=== PATIENT | male | born 1960 | race Caucasian/White ===

== ENCOUNTER → 2021-08-19 12:44 | Outpatient (BNVA) | payer OTHER, SELFPAY | PROVIDERS: PCP Internal Medicine; Visit Provider Hospitalist | DX: J41.1 Mucopurulent chronic bronchitis (principal); J18.9 Pneumonia, unspecified organism; R91.8 Other nonspecific abnormal finding of lung field; F17.210 Nicotine dependence, cigarettes, uncomplicated | CPT/HCPCS: 99202 ==

== ENCOUNTER 2021-09-17 10:57 | Outpatient (REF) | payer OTHER, SELFPAY ==
--- NOTE | 2021-09-17 17:46 | PFT_ITS ---
FLOWS: FEV1 51% of predicted at 2.03 L. FVC 81% of predicted at 4.26 L. FEV1 to FVC ratio of 0.48. No bronchodilator response. LUNG VOLUMES: Total lung capacity 87% of predicted at 6.68 L. Residual volume 110% of predicted at 2.69 L. Slow vital capacity 77% of predicted at 3.99 L. Expiratory reserve volume 98% of predicted at 1.55 L. Diffusion capacity is moderately decreased. IMPRESSION: Moderate obstructive ventilatory defect with no bronchodilator response. Decreased diffusion capacity suggests emphysema. Elder Quiroz MD AP/MODL / [id number]
== END 2021-09-17 10:58 | disposition home or self-care (01) ==
LOC: HO.RESP 10:57
PROVIDERS: PCP Internal Medicine; Visit Provider Hospitalist
DX: R06.00 Dyspnea, unspecified (principal); J41.1 Mucopurulent chronic bronchitis
CPT/HCPCS: 94060; 94727; 94729

== ENCOUNTER → 2021-09-23 13:18 | Outpatient (BNVA) | payer OTHER, SELFPAY | PROVIDERS: PCP Internal Medicine; Visit Provider Hospitalist | DX: J41.1 Mucopurulent chronic bronchitis (principal); J18.9 Pneumonia, unspecified organism; R91.8 Other nonspecific abnormal finding of lung field; F17.210 Nicotine dependence, cigarettes, uncomplicated | CPT/HCPCS: 99212 ==

== ENCOUNTER → 2022-01-27 13:14 | Outpatient (BNVA) | payer OTHER, SELFPAY | PROVIDERS: PCP Internal Medicine; Visit Provider Hospitalist | DX: J41.1 Mucopurulent chronic bronchitis (principal); J18.9 Pneumonia, unspecified organism; R91.8 Other nonspecific abnormal finding of lung field; F17.210 Nicotine dependence, cigarettes, uncomplicated; Z79.899 Other long term (current) drug therapy | CPT/HCPCS: 99212 ==

== ENCOUNTER → 2022-07-03 15:24 | Outpatient (BNVA) | payer OTHER, SELFPAY | PROVIDERS: PCP Internal Medicine; Visit Provider Hospitalist | DX: J41.1 Mucopurulent chronic bronchitis (principal); R91.8 Other nonspecific abnormal finding of lung field; F17.200 Nicotine dependence, unspecified, uncomplicated | CPT/HCPCS: 99212 ==

== ENCOUNTER → 2022-08-21 14:33 | Outpatient (REF) | payer OTHER, SELFPAY ==
--- NOTE | 2022-08-21 14:38 | ECG_ITS ---
Test Reason : COPD Blood Pressure : / mmHG Vent. Rate : 077 BPM Atrial Rate : 077 BPM P-R Int : 136 ms QRS Dur : 100 ms QT Int : 398 ms P-R-T Axes : 048 -16 047 degrees QTc Int : 450 ms Normal sinus rhythm Low voltage QRS Borderline ECG No previous ECGs available Referred By: Henri Barroso Electronically Signed By:Mathew Henley
== END ==
LOC: HO.CARD 14:33
PROVIDERS: PCP Internal Medicine; Visit Provider Hospitalist
DX: J44.9 Chronic obstructive pulmonary disease, unspecified (principal)
CPT/HCPCS: 93005

== ENCOUNTER → 2022-11-18 11:57 | Outpatient (REF) | payer OTHER, SELFPAY ==
--- NOTE | 2022-11-18 12:02 | ECG_ITS ---
Test Reason : copd Blood Pressure : / mmHG Vent. Rate : 082 BPM Atrial Rate : 082 BPM P-R Int : 148 ms QRS Dur : 102 ms QT Int : 398 ms P-R-T Axes : 072 -27 054 degrees QTc Int : 464 ms Normal sinus rhythm Low voltage QRS Borderline ECG When compared with ECG of 21-AUG-2022 14:41, No significant change was found Referred By: Henri Barroso Electronically Signed By:MALIKA EDGE MD
== END ==
LOC: HO.CARD 11:57
PROVIDERS: PCP Internal Medicine; Visit Provider Hospitalist
DX: J41.1 Mucopurulent chronic bronchitis (principal)
CPT/HCPCS: 93005

== ENCOUNTER 2023-04-21 13:47 | Outpatient (AMB) | payer OTHER, SELFPAY ==
[2023-04-21 13:55] VITALS: PULSE 92; O2SAT 94; BMI 33.1
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
== END 2023-04-21 14:12 | disposition home or self-care (01) ==
PROVIDERS: PCP Internal Medicine; Visit Provider Hospitalist
DX: J41.1 Mucopurulent chronic bronchitis (principal); R91.8 Other nonspecific abnormal finding of lung field; F17.200 Nicotine dependence, unspecified, uncomplicated
CPT/HCPCS: 99214

== ENCOUNTER → 2023-04-21 13:47 | Outpatient (BNVA) | payer OTHER, SELFPAY | PROVIDERS: PCP Internal Medicine; Visit Provider Hospitalist | DX: J41.1 Mucopurulent chronic bronchitis (principal); R91.8 Other nonspecific abnormal finding of lung field; F17.210 Nicotine dependence, cigarettes, uncomplicated; Z79.899 Other long term (current) drug therapy | CPT/HCPCS: 99212 ==

== ENCOUNTER 2023-10-27 13:50 | Outpatient (AMB) | payer OTHER, SELFPAY ==
[2023-10-27 13:56] VITALS: PULSE 80; O2SAT 94; BMI 33.1
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
== END 2023-10-27 14:15 | disposition home or self-care (01) ==
PROVIDERS: PCP Internal Medicine; Visit Provider Hospitalist
DX: J41.1 Mucopurulent chronic bronchitis (principal); R91.8 Other nonspecific abnormal finding of lung field; F17.200 Nicotine dependence, unspecified, uncomplicated
CPT/HCPCS: 99214

== ENCOUNTER → 2023-10-27 13:50 | Outpatient (BNVA) | payer OTHER, SELFPAY | PROVIDERS: PCP Internal Medicine; Visit Provider Hospitalist | DX: J41.1 Mucopurulent chronic bronchitis (principal); R91.8 Other nonspecific abnormal finding of lung field; F17.210 Nicotine dependence, cigarettes, uncomplicated | CPT/HCPCS: 99212 ==

== ENCOUNTER 2024-10-27 14:29 | Outpatient (AMB) | payer OTHER, SELFPAY ==
[2024-10-27 14:36] VITALS: BP 132/76; PULSE 77; O2SAT 95; BMI 32.4
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
--- OUTSIDE RECORDS SUMMARY | 2024-10-27 17:12 | XMS_ITS | Clinical Summary ---
Author Organization [facility] [address] [facility] Address [address] [place] [address] Phone Care Team Providers Care Manufacturing Tech Name Role Phone Maurisio Hayes MD Primary Care Provider [phone] Encounters Date Type Department Care Team Description 10/21/2024 10:12 AM EDT - 10/21/2024 11:59 PM EDT Hospital Encounter [facility] CT Scan [address] [place] [phone] Encounter for screening for malignant neoplasm of respiratory organs; Nicotine dependence, cigarettes, uncomplicated Discharge Disposition: Home or Self Care 09/28/2024 Telephone Lung Screening Program - [place] [address] [facility] [address] [place] [phone] Jadyn Jansen [place] Appointment (1st Notification) from Last 3 Months Surgical History Surgery Date Site/Laterality Comments CYST REMOVAL PROCEDURE: [place] EXCISION PILONIDAL CYST/SINUS SIMPLE Medical History Medical History Date Comments MELECIO (obstructive sleep apnea) 01/18/2020 DX :MELECIO (obstructive sleep apnea) COPD (chronic obstructive pu lmonary disease) ([facility]/HCC V24, [facility]/HCC V28) 01/18/2020 DX:COPD (chronic o bstructive pulmonary disease) ([facility]) Hypertension 01/18/2020 DX:Hypertension Hypothyroidism 01/18/2020 DX:Hypothyroidis m Pulmonary collapse 01/18/2020 DX:Pulmonary collapse; COMMENT: RML collapse, partial History of pneumothorax 01/18/2020 DX:Histo ry of pneumothorax; COMMENT: Spontaneous, in his 20s, right 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:Adrenal adeno ma; COMMENT: left Family History Medical History Relation Name Comments Heart attack Father Hypertension Mother Diabetes Sister HTN Relation Name Status Comments Father Mother Sister Social History Tobacco Use Types Packs/Day Years Used Date Smoking Tobacco: Every Day Smokeless Tobacco: Never Alcohol Use Standard Drinks/Week Comments Not Currently 0 (1 standard drink = 0.6 oz pur e alcohol) Sex and Gender Information Value Date Recorded Sex Assigned at Male 10/19/2024 12:23 PM EDT Legal Sex Male 12:19 PM EST Gender Identity Male 10/19/2024 12:23 PM EDT Sexual Orientation Straight 10/19/2024 12 :23 PM EDT Obstetrics History Last Filed Vital Signs Vital Sign Reading Time Taken Comments Blood Pressure 112/71 02/11/2024 8:50 AM EDT Pulse 82 02/11/2024 8:50 AM EDT Temperature - - Respiratory Rate - - Oxygen Saturation - - Inhaled Oxygen Concentration - - Weight 108 kg (238 lb) 02/11/2024 8:50 AM EDT Height 185.4 cm (6' 1 ) 02/11/2024 8:50 AM EDT Body Mass Index 31.4 02/11/2024 8:50 AM EDT Plan of Treatment Health Maintenance Due Date Last Done Comments DTaP,Tdap,and Td Vaccines (1 - Tdap) 1979 Zoster Vaccines (1 of 2) 2010 RSV Immunization Adult Patients (1 - Risk 60-74 years 1-dose series) 2020 Cholesterol Screening (Lipid Panel) 06/17/2022 Colorectal Cancer Screening: Colonoscopy 06/17/2022 Depression Screening 06/17/2022 HIV Screening 06/17/2022 Hepatitis C Screening 06/17/2022 Social Influencers of Health Screening 06/17/2022 Hypertension/CHF/CAD Annual BMP Blood Test 07/05/2022 COVID-19 Vaccine ( - 2023-2 5 season) 2024 Pneumococcal Vaccine: 50+ Years Completed 10/22/2022 Pneumococcal Vaccine: Pediatrics (0 to 5 Years) and At-Risk Patients (6 to 64 Years) Completed 10/22/2022 Influenza Vaccine Completed 05/05/2024, 06/22/2019, 05/06/2018 HIB Vaccines Aged Out No longer eligi ble based on patient's age to complete this topic HPV Vaccines Aged Out No longer eligi ble based on patient's age to complete this topic Hepatitis A Vaccines Aged Out No long er eligible based on patient's age to complete this topic Hepatitis B Vaccines Aged Out No long er eligible based on patient's age to complete this topic IPV Vaccines Aged Out No longer eligi ble based on patient's age to complete this topic MMR Vaccines Aged Out No longer eligi ble based on patient's age to complete this topic Meningococcal ACWY Vaccine Aged Out N o longer eligible based on patient's age to complete this topic Meningococcal B Vaccine Aged Out No l onger eligible based on patient's age to complete this topic RSV Immunization Patients Under 20 months Aged Out No longer eligible b ased on patient's age to complete this topic Varicella Vaccines Aged Out No longer eligible based on patient's age to complete this topic Procedures Procedure Name Priority Date/Time Associated Diagnosis Comments CT LUNG SCREENING Routine 10/21/2024 10: 30 AM EDT Encounter for screening for malignant neoplasm of respiratory organs Nicotine dependence, cigarettes, uncomplicated from Last 3 Months Results * CT Lung Screening (10/21/2024 10:30 AM EDT) Anatomical Region Laterality Modality Chest Computed Tomogra phy 10/25/2024 3:03 PM EDT Impressions 10/25/2024 3:19 PM EDT Severe emphysema. ??Extensive postinflammatory changes. Stable bilateral nodules. No suspicious interval change ?? LUNG RADS: Lung-RADS 2: BENIGN S Modifier (Significant or Potentially Significant Findings): None present No suspicious nonpulmonary findings. RECOMMENDATIONS: [address] low dose [address] -------- FINAL REPORT -------- Dictated By: Rudy Case Dictated Date: 10/25/2024 15:03 ET Assigned Physician: Rudy Case Reviewed and Electronically Signed By: Rudy Case Signed Date: 10/25/2024 15:19 ET Workstation ID: [id number] Transcribed By: Self Edit Transcribed Date: 10/25/2024 15:03 ET Narrative 10/25/2024 3:19 PM EDT EXAMINATION: CT CHEST WITHOUT CONTRAST LUNG CANCER SCREENING, LOW DOSE CLINICAL INFORMATION: Lung cancer screening. ??Current smoker COMPARISON: Portions of previous 10/15/23 ?? TECHNIQUE: Multidetector CT. Examination of the chest. Examination of the chest without IV contrast. Reformatting in the coronal and sagittal planes. Device: IntelliChem VCT DLP: 181 mGy-cm CTDI: 4.83 Dose optimization was performed including the use of low-dose iterative reconstruction technique with automatic exposure control based on patient size. Type of contrast: None Volume of IV contrast: None Volume of contrast discarded: 0 mL FINDINGS: LUNG: The trachea is patent. ??There is irregularity of the central airways perhaps related to chronic inflammation. There is unchanged volume loss including the middle lobe and lingula. ?? LUNG NODULES: There are multiple bilateral small nodules. Cold Press Loader nodule; Central aspect superior segment left lower lobe 10/21/24-0.4 cm () 10/15/23-0.4 cm Central aspect apical posterior left upper lobe 10/21/24-0.3 cm () 10/15/23-0.3 cm OTHER PULMONARY: ??Severe centrilobular and paraseptal emphysema. ??There are reticular and bandlike opacities. ??There is no honeycomb formation. MEDIASTINUM: ??There are no enlarged mediastinal or hilar lymph nodes. No suspicious abnormalities of the esophagus CARDIAC: The heart is not enlarged. No pericardial fluid or thickening ?? No coronary calcifications demonstrated. VASCULAR: There is no thoracic aortic aneurysm. The main pulmonary artery is normal caliber ?? PLEURA: There is no pleural fluid or pneumothorax ?? AXILLA/CHEST WALL: There are no enlarged axillary lymph nodes. No chest wall mass demonstrated ?? VISUALIZED UPPER ABDOMEN: ??There is cholelithiasis Low attenuating slightly heterogeneous left adrenal mass 10/21/24 3.1 cm 10/15/23-3.1 cm 03/12/16-2.9 cm MUSCULOSKELETAL: No suspicious focal bony lesion demonstrated. Procedure Note Rudy Case MD - 10/25/2024 EXAMINATION: CT CHEST WITHOUT CONTRAST LUNG CANCER SCREENING, LOW DOSE CLINICAL INFORMATION: Lung cancer screening. Current smoker COMPARISON: Portions of previous 10/15/23 TECHNIQUE: Multidetector CT. Examination of the chest. Examination of the chest without IV contrast. Reformatting in the coronal and sagittal planes. Device: IntelliChem VCT DLP: 181 mGy-cm CTDI: 4.83 Dose optimization was performed including the use of low-dose iterativereconstruction technique with automatic exposure control based on patientsize. Type of contrast: None Volume of IV contrast: None Volume of contrast discarded: 0 mL FINDINGS: LUNG: The trachea is patent. There is irregularity of the central airwaysperhaps related to chronic inflammation. There is unchanged volume loss including the middle lobe and lingula. LUNG NODULES: There are multiple bilateral small nodules. Cold Press Loader nodule; Central aspect superior segment left lower lobe 10/21/24-0.4 cm () 10/15/23-0.4 cm Central aspect apical posterior left upper lobe 10/21/24-0.3 cm () 10/15/23-0.3 cm OTHER PULMONARY: Severe centrilobular and paraseptal emphysema. Thereare reticular and bandlike opacities. There is no honeycomb formation. MEDIASTINUM: There are no enlarged mediastinal or hilar lymph nodes. Nosuspicious abnormalities of the esophagus CARDIAC: The heart is not enlarged. No pericardial fluid or thickening No coronary calcifications demonstrated. VASCULAR: There is no thoracic aortic aneurysm. The main pulmonary arteryis normal caliber PLEURA: There is no pleural fluid or pneumothorax AXILLA/CHEST WALL: There are no enlarged axillary lymph nodes. No chestwall mass demonstrated VISUALIZED UPPER ABDOMEN: There is cholelithiasis Low attenuating slightly heterogeneous left adrenal mass 10/21/24 3.1 cm 10/15/23-3.1 cm 03/12/16-2.9 cm MUSCULOSKELETAL: No suspicious focal bony lesion demonstrated. IMPRESSION: Severe emphysema. Extensive postinflammatory changes. Stable bilateral nodules. No suspicious interval change LUNG RADS: Lung-RADS 2: BENIGN S Modifier (Significant or Potentially Significant Findings): Nonepresent No suspicious nonpulmonary findings. RECOMMENDATIONS: 12 month screening low dose CT -------- FINAL REPORT -------- Dictated By: Rudy Case Dictated Date: 10/25/2024 15:03 ET Assigned Physician: Rudy Case Reviewed and Electronically Signed By: Rudy Case Signed Date: 10/25/2024 15:19 ET Workstation ID: [id number] Transcribed By: Self Edit Transcribed Date: 10/25/2024 15:03 ET us Felipa Mckay MD IMG CT PROCEDURES Final Result from Last 3 Months Insurance MEDICA[place] - [place] [facility] Care Teams Manufacturing Tech Relationship Specialty Start Date End Date Maurisio Hayes MD [address] [place] [phone] PCP - General Internal Medicine 10/19/24
--- OUTSIDE RECORDS SUMMARY | 2024-10-27 17:12 | XMS_ITS | Patient Health Record ---
Author Organization [facility] Address [address] [facility] [address] [place] [address] Care Team Providers Care Filer And Sander Name Role Phone Maurisio Hayes Primary Care Provider Unavailabl e Allergies Allergen (clinical drug ingredient) Drug/Non Drug Allergy documented on EMR Reaction Allergy Type Onset Date Status aspirin Aspirin Unknown Drug Allergy Active bupropion Bupropion Unknown Drug Allergy Active doxycycline Doxycycline Unknown Drug Allergy Act yang levofloxacin Levofloxacin Unknown Drug Allergy A ctive trazodone Trazodone Unknown Drug Allergy Active varenicline Varenicline Unknown Drug Allergy Act yang Reason For Referral No Information Medications Medication SIG (Take, Route, Fr equency, Duration) Notes Start Date End Date Status Heliocare 240 MG 1 capsule Orally Once a day Active Vitamin B12 1000 MCG 1 tablet Orally Once a day Active Advil Cold/Sinus 30-200 MG 1 tablet as needed Orally every 6 hrs Active Clotrimazole 10 MG 1 jeferson while on immunosuppressive medicine Mouth/Throat Three times a day Active Ventolin HFA 108 (90 Base) MCG/ACT 1 puff as needed Inhalation every 4 hrs Active Lisinopril 10 MG 1 tablet Orally Once a day Active Levothyroxine Sodium 100 MCG 1 tablet in the morning on an empty stomach Orally Once a day Active Flovent HFA 110 MCG/ACT 2 puffs Inhalati on Twice a day Active Daliresp 250 MCG 1 tablet Orally Once a day Active Budesonide 32 MCG/ACT 2 sprays (1 spray in each nostril) Nasally Once a day Acti ve Azithromycin 250 MG as directed Orally Active Anoro Ellipta 62.5-25 MCG/ACT 1 puff Inhalation Once a day Active Problems Problem Type SNOMED Code ICD Code Onset Dates Problem Status W/U Status Risk Notes Problem [id number] Hallux valgus (acquired), right foot (M20.11) Active confirmed Plan Of Treatment No Information Medical (General) History Medical History History ICD Code Cardiovascular Disease Hypertension Diabetes Head Trauma/Concussion COPD Emphysema Severe Asthma Surgical History Surgery Date(Month/Year) Back Lesions Removed
--- OUTSIDE RECORDS SUMMARY | 2024-10-27 17:12 | XMS_ITS ---
Author Organization [facility] Address [address] [facility] [address] Care Team Providers Care Manager Plumbing Name Role Phone Maurisio Hayes Primary Care Provider ZENA Kamara Unavailable [phone] Allergies Allergen (clinical drug ingredient) Drug/Non Drug Allergy documented on EMR Reaction Allergy Type Onset Date Status aspirin Aspirin Unknown Drug Allergy Active bupropion Bupropion Unknown Drug Allergy Active doxycycline Doxycycline Unknown Drug Allergy Act yang levofloxacin Levofloxacin Unknown Drug Allergy A ctive trazodone Trazodone Unknown Drug Allergy Active varenicline Varenicline Unknown Drug Allergy Act yang REASON FOR VISIT Right foot great toe pushing into second toe Medications Medication SIG (Take, Route, Fr equency, Duration) Notes Start Date End Date Status Clotrimazole 10 MG 1 jeferson while on [...] puffs Inhalati on Twice a day Active Heliocare 240 MG 1 capsule Orally Once a day Active Vitamin B12 1000 MCG 1 tablet Orally Once a day Active Advil Cold/Sinus 30-200 MG 1 tablet as needed Orally every 6 hrs Active Azithromycin 250 MG as directed Orally Active Anoro Ellipta 62.5-25 MCG/ACT 1 puff Inhalation Once a day Active Daliresp 250 MCG 1 tablet Orally Once a day Active Budesonide 32 MCG/ACT 2 sprays (1 spray in each nostril) Nasally Once a day Acti ve Problems Problem Type SNOMED Code ICD Code Onset Dates Problem Status W/U Status Risk Notes Problem [id number] Hallux valgus (acquired), right foot (M20.11) Active confirmed Vital Signs Temperature 97.5 degrees Fahrenheit 05/01/20 Blood pressure systolic 132 mm Hg 05/01/20 Blood pressure diastolic 70 mm Hg 023 Heart Rate 72 /min 05/01/2023 Respiratory Rate 16 /min 05/01/2023 Height 6ft 1in in 05/01/2023 Weight 249.6 lbs 05/01/2023 BMI 32.93 kg/m2 05/01/2023 Encounters Encounter Location Date Provider Diagnosis [facility] [address] [facility] [address] [place] [address] 05/01/2023 ZENA LAWLER Hallux valgus (acquired), right foot M20.11 Assessments Encounter Date Diagnosis (ICD Code) Assessment Notes Treatment Notes Treatment Clinical Notes Section Notes 05/01/2023 Hallux valgus (acquired), right foot (ICD-10 - M20.11) Patient examined and evaluated today. Past medical history reviewed in detail. Three weight bearing radiographs of the right foot were taken in the office and reviewed with the patient on the computer with the help of a skeletal foot model. I had a long discussion with the patient about hallux valgus (bunion) deformities. This is a structural deformity of the 1st metatarsal bone that also affects the 1st metatarsal phalangeal joint and can affect the lesser toes as well. I discussed that bunions can be hereditary due to foot structure. They can also be due to past trauma or arthritis. I educated the patient that there is no way of predicting if the bunion will progress in severity or not. I discussed that all conservative treatment options will help with pain, but will not make the deformity go away. Patient understood. I went through conservative options which included shoes with a wider toe box, RICE therapy, anti-inflammatori es, padding, and cortisone injections. I also talked a little today about surgical procedures and the associated risks. I advised the patient that surgery should be considered when the pain is affecting day to day activities. Surgery does not guarantee complete resolution of pain. There is always a risk of residual deformity, hypersensitivity, stiffness, edema, and recurrence when surgery is performed. I provided him with a gel toe spacer to start using. If the pain continues or worsens, I advise he follow back in the office. Plan Of Treatment Treatment Notes Assessment Notes Hallux valgus (acquired), right foot Pat ient examined and evaluated today. Past medical history reviewed in detail. Three weight bearing radiographs of the right foot were taken in the office and reviewed with the patient on the computer with the help of a skeletal foot model. I had a long discussion with the patient about hallux valgus (bunion) deformities. This is a structural deformity of the 1st metatarsal bone that also affects the 1st metatarsal phalangeal joint and can affect the lesser toes as well. I discussed that bunions can be hereditary due to foot structure. They can also be due to past trauma or arthritis. I educated the patient that there is no way of predicting if the bunion will progress in severity or not. I discussed that all conservative treatment options will help with pain, but will not make the deformity go away. Patient understood. I went through conservative options which included shoes with a wider toe box, RICE therapy, anti-inflammatories, padding, and cortisone injections. I also talked a little today about surgical procedures and the associated risks. I advised the patient that surgery should be considered when the pain is affecting day to day activities. Surgery does not guarantee complete resolution of pain. There is always a risk of residual deformity, hypersensitivity, stiffness, edema, and recurrence when surgery is performed. I provided him with a gel toe spacer to start using. If the pain continues or worsens, I advise he follow back in the office. Progress Notes * Nemesio MUHAMMADJustynaOB:1960 (62 yo M)Acc No.[id number]:05/01/2023 Patient:?Matias Muhammad Provider:?Zena Navarro DPM :1960???Age:62 Y???Sex:Male Otto e:05/01/2023 Address:[address] [place], [place] [address] , [id number] Pcp:Maurisio Hayes Subjective: * Chief Complaints: * ???Right foot great toe push ing into second toe * HPI: ???Constitutional:? Mr. Muhammad is a pleasant 62 year old male who presents for a consultation. He has been having some cramping in the right great toe over the past month. It is on and off. He has also noticed the right great toe looks like it is leaning toward the right 2nd toe. He has been massaging it and pulling the toe out. This seems to help. He has had no swelling, numbness, tingling, or discoloration. He denies any recent changes in activity or shoe gear. He denies any radiating symptoms in the right lower extremity. He also denies any weakness. * ROS:?See HPI. * Medical History:? * Surgical History:?Back Lesio ns Removed * Hospitalization/Major Diagno stic Procedure:?No Hospitalization History. * Family History:?Father: tera estive heart failure.?Mother: alzheimer's dementia.? * Social History:?Tobacco Use: Everyday (50+ years) Alcohol Frequency: None No illicit drug use. * Medications:?TakingHeliocare 240 MG Capsule 1 capsule Orally Once a day Vitamin B12 1000 MCG Tablet Extended Release 1 tablet Orally Once a day Advil Cold/Sinus 30- 200 MG Tablet 1 tablet as needed Orally every 6 hrs Clotrimazole 10 MG Jeferson 1 jeferson while on immunosuppressive medicine Mouth/Throat Three times a day Ventolin HFA 108 (90 Base) MCG/ACT Aerosol Solution 1 puff as needed Inhalation every 4 hrs Lisinopril 10 MG Tablet 1 tablet Orally Once a day Levothyroxine Sodium 100 MCG Tablet 1 tablet in the morning on an empty stomach Orally Once a day Flovent HFA 110 MCG/ACT Aerosol 2 puffs Inhalation Twice a day Daliresp 250 MCG Tablet 1 tablet Orally Once a day Budesonide 32 MCG/ACT Suspension 2 sprays (1 spray in each nostril) Nasally Once a day Azithromycin 250 MG Tablet as directed Orally Anoro Ellipta 62.5-25 MCG/ACT Aerosol Powder Breath Activated 1 puff Inhalation Once a day Medication List reviewed and reconciled with the patientTaking Heliocare 240 MG Capsule 1 capsule Orally Once a day Taking Vitamin B12 1000 MCG Tablet Extended Release 1 tablet Orally Once a day Taking Advil Cold/Sinus 30-200 MG Tablet 1 tablet as needed Orally every 6 hrs Taking Clotrimazole 10 MG Jeferson 1 jeferson while on immunosuppressive medicine Mouth/Throat Three times a day Taking Ventolin HFA 108 (90 Base) MCG/ACT Aerosol Solution 1 puff as needed Inhalation every 4 hrs Taking Lisinopril 10 MG Tablet 1 tablet Orally Once a day Taking Levothyroxine Sodium 100 MCG Tablet 1 tablet in the morning on an empty stomach Orally Once a day Taking Flovent HFA 110 MCG/ACT Aerosol 2 puffs Inhalation Twice a day Taking Daliresp 250 MCG Tablet 1 tablet Orally Once a day Taking Budesonide 32 MCG/ACT Suspension 2 sprays (1 spray in each nostril) Nasally Once a day Taking Azithromycin 250 MG Tablet as directed Orally Taking Anoro Ellipta 62.5-25 MCG/ACT Aerosol Powder Breath Activated 1 puff Inhalation Once a day Medication List reviewed and reconciled with the patient * Allergies:?DoxycyclineAspirinVareniclineBupropionTrazodoneLevofloxacinno[Allergi es Verified] Objective: * Vitals:?Wt:249.6lbs, Ht: 6ft 1in, BMI:32.93Index, HR:72/min, BP:132/70mm Hg, Temp:97.5F, RR:16/min, Ht-cm: 185.42, Wt-k.22 kg. * Examination: ???General Examination: ???This is a middle aged male. Alert and oriented today and in no acute distress. Patient comes in ambulating in sneakers without using any assistive devices. Breathing is regular and unlabored while sitting. Affect is pleasant and cooperative. No unusual anxiety or depression noted. Hearing intact to spoken word. No evidence of visual impairment that would impact self care or ambulation. Patient has palpable dorsalis pedis and posterior tibial pulse bilaterally. No varicosities visualized. Capillary refill is less than 3 seconds to all digits bilaterally. All toes are warm and well perfused bilaterally. Hair growth present. Light touch sensation is symmetrical to all lower extremity dermatomes. Babinski is downgoing. Skin has normal turgor and texture. There are no open wounds, rashes, or lesions noted. Mild right hallux valgus deformity present. No pain with right 1st MPJ range of motion. There is mild limitations in the motion. No pain with pressure or manipulation of the right hallux IPJ. No edema or discoloration. Subtalar and ankle joint range of motion are unrestricted. 5/5 strength for anterior, posterior, and lateral lower extremity muscle groups on the left and right. Assessment: * Assessment: 1.?Hallux valgus (acquired), right foot - M20.11 (Primary)? Plan: * Treatment: * Procedures:?RIGHT FOOT RADIOGRAPHS 05/01/2023 3 weight bearing views (AP, LAT, LO PROJECTION/MO VIEW) Taken in the office and read by the physician. Osseous mineralization is age appropriate. There are no acute fractures or dislocations. Hallux valgus present with mild narrowing of the 1st MPJ and sclerosis. No abnormal bone lesions or tumors. Joint spaces appear preserved throughout. No radio opaque foreign bodies or soft tissue calcifications. ? * Procedure Codes:? * Billing Information: * Visit Code:? * Procedure Codes:? * Sign off status: Completed true * Provider:?Zena Navarro DPM Date:?05/01 Generated for Shahla john/Nurys/Bernardosmitting on:?10/27/2024 05:12 PM EDT History and Physical Notes * Examination Category Sub-Category Detail Notes Category Not es General Examination This is a middle aged male. Alert and oriented today and in no acute distress. Patient comes in ambulating in sneakers without using any assistive devices. Breathing is regular and unlabored while sitting. Affect is pleasant and cooperative. No unusual anxiety or depression noted. Hearing intact to spoken word. No evidence of visual impairment that would impact self care or ambulation. Patient has palpable dorsalis pedis and posterior tibial pulse bilaterally. No varicosities visualized. Capillary refill is less than 3 seconds to all digits bilaterally. All toes are warm and well perfused bilaterally. Hair growth present. Light touch sensation is symmetrical to all lower extremity dermatomes. Babinski is downgoing. Skin has normal turgor and texture. There are no open wounds, rashes, or lesions noted. Mild right hallux valgus deformity present. No pain with right 1st MPJ range of motion. There is mild limitations in the motion. No pain with pressure or manipulation of the right hallux IPJ. No edema or discoloration. Subtalar and ankle joint range of motion are unrestricted. 5/5 strength for anterior, posterior, and lateral lower extremity muscle groups on the left and right.
--- OUTSIDE RECORDS SUMMARY | 2024-10-27 17:12 | XMS_ITS | Encounter Summary ---
Author Organization [facility] Address [address] [place] [address] Care Team Providers Care Negative Spotter Name Role Phone Maurisio Hayes MD Primary Care Provider [phone] Reason for Referral * Imaging (Routine) - Pending Review Specialty Diagnoses / Procedures Referred By Contac t Referred To Contact Radiology Diagnoses Encounter for screening for malignant neoplasm of respiratory organs Nicotine dependence, cigarettes, uncomplicated Procedures CT Lung Screening Felipa Mckay MD [address] [address] Phone: tel: fax: [address] [address] Phone: tel: Referral ID Status Reason Start Date Expiration Date V isits Requested Visits Authorized [id number] Pending Review 09/19/2024 09/19/2025 1 1 Reason for Visit * Imaging (Routine) - Pending Review Specialty Diagnoses / Procedures Referred By Contac t Referred To Contact Radiology Diagnoses Encounter for screening for malignant neoplasm of respiratory organs Nicotine dependence, cigarettes, uncomplicated Procedures CT Lung Screening Felipa Mckay MD [address] [address] Phone: tel: fax: [address] [address] Phone: tel: Referral ID Status Reason Start Date Expiration Date V isits Requested Visits Authorized [id number] Pending Review 09/19/2024 09/19/2025 1 1 Encounter Details Date Type Department Care Team (Latest Contact Info) Description 10/21/2024 10:12 AM EDT - 10/21/2024 11:59 PM EDT Hospital Encounter [facility] CT Scan [address] [place] [address] Encounter for screening for malignant neoplasm of respiratory organs; Nicotine dependence, cigarettes, uncomplicated Discharge Disposition: Home or Self Care Social History Tobacco Use Types Packs/Day Years [...] Orientation Straight 10/19/2024 12 :23 PM EDT documented as of this encounter Discharge Disposition Disposition Code Departure Means Destination Home or Self Care documented in this encounter Plan of Treatment Not on file documented as of this encounter Procedures Procedure Name Priority Date/Time Associated Diagnosis Comments CT LUNG SCREENING Routine 10/21/2024 10: 30 AM EDT Encounter for screening for malignant neoplasm of respiratory organs Nicotine dependence, cigarettes, uncomplicated documented in this encounter Results * CT Lung Screening (10/21/2024 10:30 [...] Signed Date: 10/25/2024 15:19 ET Workstation ID: [id number] Transcribed By: Self Edit Transcribed Date: 10/25/2024 15:03 ET Narrative 10/25/2024 3:19 PM EDT EXAMINATION: CT CHEST WITHOUT CONTRAST LUNG CANCER SCREENING, LOW DOSE CLINICAL INFORMATION: Lung cancer screening. ??Current smoker COMPARISON: Portions of previous 10/15/23 ?? TECHNIQUE: Multidetector CT. Examination of the chest. Examination of the chest without IV contrast. Reformatting in the coronal and sagittal planes. Device: LikeWhere VCT DLP: 181 mGy-cm CTDI: 4.83 Dose [...] NODULES: There are multiple bilateral small nodules. Land Developer nodule; Central aspect superior segment left lower [...] in the coronal and sagittal planes. Device: LikeWhere VCT DLP: 181 mGy-cm CTDI: 4.83 Dose [...] NODULES: There are multiple bilateral small nodules. Land Developer nodule; Central aspect superior segment left lower [...] Signed Date: 10/25/2024 15:19 ET Workstation ID: [id number] Transcribed By: Self Edit Transcribed Date: 10/25/2024 15:03 ET us Felipa Mckay MD IMG CT PROCEDURES Final Result documented in this encounter Visit Diagnoses Diagnosis Encounter for screening for malignant neoplasm of respiratory organs Nicotine dependence, cigarettes, uncomplicated documented in this encounter Care Teams Negative Spotter Relationship Specialty Start Date End Date Maurisio Hayes MD [address] [place] [id number] PCP - General Internal Medicine 10/19/24 documented as of this encounter
== END 2024-10-27 15:18 | disposition home or self-care (01) ==
LOC: HO.HPS 14:30
PROVIDERS: PCP Internal Medicine; Visit Provider Hospitalist
DX: J41.1 Mucopurulent chronic bronchitis (principal); R91.8 Other nonspecific abnormal finding of lung field; F17.200 Nicotine dependence, unspecified, uncomplicated; J18.9 Pneumonia, unspecified organism
CPT/HCPCS: 99214; G2211

== ENCOUNTER → 2024-10-27 14:29 | Outpatient (BNVA) | payer OTHER, SELFPAY | PROVIDERS: PCP Internal Medicine; Visit Provider Hospitalist | DX: J41.1 Mucopurulent chronic bronchitis (principal); R91.8 Other nonspecific abnormal finding of lung field; J18.9 Pneumonia, unspecified organism; F17.210 Nicotine dependence, cigarettes, uncomplicated | CPT/HCPCS: 99212 ==

== ENCOUNTER 2025-03-28 08:51 | Outpatient (AMB) | payer OTHER, SELFPAY ==
--- NOTE | 2025-03-28 08:54 | MHC.OFFVIS ---
Vital Signs 03/28/25 08:54 Height 6 ft 1 in Intake Visit Reasons: 3 Month Allergies aspirin Allergy (Intermediate, Verified 03/28/25 09:07) Rash levofloxacin Adverse Reaction (Severe, Verified 03/28/25 09:07) Rash bupropion (From Wellbutrin) Adverse Reaction (Intermediate, Verified 03/28/25 09:07) Hallucinations hydrochlorothiazide Adverse Reaction (Intermediate, Verified 03/28/25 09:07) Diarrhea trazodone Adverse Reaction (Intermediate, Verified 03/28/25 09:07) Hallucinations Medication List - Last Reconciled 03/28/25 by Belinda Nelson, CONNOR albuterol sulfate 0.63 mg inhalation Q4-6H PRN albuterol sulfate 90 mcg/actuation (Ventolin HFA) 2 puffs inhalation Q6H PRN 30 days Anoro Ellipta 62.5-25 mcg/actuation (umeclidinium-vilanterol) 1 ea PO DAILY NS azithromycin 250 mg PO 3XW budesonide 32 mcg/actuation intranasal clotrimazole 10 mg PO epinephrine 0.125 mg/actuation (Primatene Mist) 1 puff inhalation Q6H PRN fluticasone furoate 100 mcg/actuation (Arnuity Ellipta) 1 inh inhalation DAILY 30 days flyjovcdiev-aetotkaii-ninowjgs 200-62.5-25 mcg (Trelegy Ellipta) 1 inh inhalation DAILY 30 days levothyroxine 100 mcg PO DAILY linagliptin (Tradjenta) 5 mg PO DAILY lisinopril 20 mg PO DAILY nebulizers As directed roflumilast 500 mcg PO DAILY triamcinolone acetonide 0.1% 1 appl topical DAILY HPI Comments Details: Gets brief white light in peripheral vision of R eye after turning head in certains position on occasion mostly at night. No pain, double or blurred vision. Had normal eye exam. No significant headaches. No change to left-sided tinnitus that comes and goes, when severe causes ringing in right ear and takes Advil Cold and Sinus which helps it to resolve. No pauses in speech. No significant difficulty communicating, occasionally incorrect words come out or will take some time to think of correct word. Tremors are okay, worse after albuterol nebulizer. No significant functional impairment. Energy level was about the same. No new or increased weakness. No falls. Sleep was okay. Blood pressure and blood sugar running high, lisinopril dose increase and started on medication for blood sugar. In 12/2024, had R eye floater off and on, no pain, no double or blurred vision. Ongoing left-sided tinnitus, when severe causes ringing in right ear and vision to go black. Takes Advil Cold and Sinus when this happens, vision returns and ringing in R ear stops within 20 minutes. Had pneumonia and was treated with antibiotics in 06/2024, did not have any tinnitus in L ear during this time. No further pauses in speech. Able to communicate effectively, occasionally incorrect words come out or will take some time to think of correct word. Energy okay. Tremors are okay, more prominent after albuterol nebulizer. No functional impairment. Limited use of computer or research, otherwise gets mental fog. Had negative MRI brain and carotid doppler in 2020. Cannot focus on more than one thing. On 06/05/2019, he suddenly started to feel ataxia, staggering. He sat for a while and 15 minutes later, went out to smoke and noticed that he could not focus very well his eyes. His eyes were jumping and apparently had some sort of nystagmus then his whole body started to shake. He did not pass out. Went to [facility]. Has baseline left-sided tinnitus since 20s that got very loud that day. [place] weak, shaky, and was struggling with words. Had CAT scan of head which was unremarkable, and a week later MRI brain which was also unremarkable. 2 days later, he thought that his right eye was drooping, had dizziness and nausea, which has been relieved by Advil Cold and Sinus. As long as he takes 1 tablet/day, he remains asymptomatic. He did not drive for one week after this episode. A few times in his life he has had a strong ice pick like headache on the top of his head. In his 20s, he used to get some starburst in his vision, which was thought to have been possible optical migraine. [facility] Medical History (Updated 03/28/25 @ 12:55 by Belinda Nelson CNP) Tinnitus Partial seizure disorder Hypertension Migraine Vertebro-basilar artery syndrome Tobacco dependence Pneumonia Pneumonia Pulmonary nodules COPD (chronic obstructive pulmonary disease) Family History (Updated 03/28/25 @ 09:16 by Belinda Nelson CNP) Father Parkinsons disease Social History (Updated 10/27/24 @ 14:40 by Cindy Whittaker [facility]) Patient Tobacco Use Status: Current everyday Tobacco user Tobacco use type: Cigarette Cigarette Packs Per Day: 0.75 Cigarettes Per Day: 15 Years Smoked: 50+ Years Review of Systems Const Denies chills, Denies daytime sleepiness, Denies difficulty sleeping, Reports fatigue, Denies fever(s), Denies frequent falls, Denies headache(s), Denies increased appetite, Denies poor appetite, Denies snoring, Denies weakness, Denies weight gain and Denies weight loss Eyes Denies loss of vision ENT Denies vertigo, Denies dizziness, Denies headache(s), Denies neck pain and Reports tinnitus Card Denies chest pain at rest, Denies chest pain with activity, Denies syncope, Denies leg edema, Denies palpitations, Denies dyspnea and Denies dyspnea on exertion Resp Denies cough, Denies dyspnea, Denies dyspnea on exertion and Denies snoring GI Denies abdominal pain, Denies constipation, Denies heartburn, Denies diarrhea and Denies nausea Denies urinary frequency, Denies urinary incontinence and Denies urinary urgency Musc Denies abnormal gait, Denies back pain, Denies myalgias, Denies arthralgias, Denies neck pain, Reports numbness and Reports tingling Neuro Denies abnormal gait, Denies vertigo, Denies dizziness, Denies syncope, Denies frequent falls, Denies headache(s), Denies lack of coordination, Denies loss of vision, Reports memory loss, Reports numbness, Denies Other visual disturbances, Denies restless legs, Denies seizure-like activity, Reports tingling, Denies paresthesias, Reports tremor(s) and Denies weakness Psych Denies anxiety, Denies depression, Denies auditory hallucinations, Reports memory loss and Denies visual hallucinations Endo Reports fatigue and Denies palpitations Physical Exam Const Other: General Appearance:? normal, in no acute distress. Heart:? S1, S2 normal, no murmurs. Lungs:? clear anteriorly and posteriorly. Musculoskeletal:? normal. Extremities:? no edema. Psych:? alert, oriented, cognitive function intact, cooperative with exam. Neuro Other: Abnormal Neurological Findings:?Tremor RUE > LUE in extended position Mental Status: alert and oriented X 3. Normal attention, orientation, memory, and affect. Cranial Nerves: Pupils are equal, round, and reactive to light. External ocular muscles are intact. Visual santoro are full, no ptosis. Face is symmetrical, no facial weakness or droop. Facial sensations are normal. Tongue protrudes in midline. Palate elevates symmetrically. Shoulder shrugging is normal Motor Examination: Normal muscle tone, bulk and strength. No atrophy or fasciculations. No drift of the extended upper extremities. DTR 2+. Plantars are flexor. Sensory Exam: Normal light touch, temperature, pinprick, vibration, and joint-position sensations. Rhomberg sign is absent. Coordination: No ataxia. No titubation. Gait Exam: Within normal limits. Cerebellar Signs: Rejwdn-jp-ggaa is okay. Extrapyramidal System: Tremor as above. No rigidity with normal facial expressions. No bradykinesia. No bradyphrenia. Normal arm swing and posture. No propulsion or retropulsion. Speech: Normal. Results Reviewed Results Reviewed: 01/04/21 EEG- WN 09/2020 MRI brain and carotid doppler normal. 09/2023 48hr EEG: WNL MRI Brain at [facility] 01/17/2025: 1. Findings suggestive of mild chronic microvascular ischemic disease, with a small linear focus of post infarct encephalomalacia in the left celebellar hemisphere. 2. Normal noncontrast MRI appearance of the IACs. Assessment & Plan Assessment & Plan (1) Partial seizure disorder: Code(s): G40.109 - Localization-related (focal) (partial) symptomatic epilepsy and epileptic syndromes with simple partial seizures, not intractable, without status epilepticus Category: Medical Plan: MRI results reviewed. (2) Tinnitus: Code(s): H93.19 - Tinnitus, unspecified ear Category: Medical Qualifiers: Laterality: left Qualified Code(s): H93.12 - Tinnitus, left ear (3) Cerebral microvascular disease: Code(s): I67.89 - Other cerebrovascular disease Category: Medical Plan: Control blood pressure, blood sugar. (4) Tremor: Code(s): R25.1 - Tremor, unspecified Category: Medical Plan: He was not interested in medication at this time. Plan . Coding Level of Care Code Est Pt Level 4 (45652) Diagnoses Partial seizure disorder G40.109 Tinnitus of left ear H93.12 Laterality: left Cerebral microvascular disease I67.89 Tremor R25.1
--- OUTSIDE RECORDS SUMMARY | 2025-03-28 10:03 | XMS_ITS | Clinical Summary ---
Author Organization [facility] [address] [facility] Address [address] [place] [address] Phone Care Team Providers Care Agent Telegrapher Name Role Phone Maurisio Hayes MD Primary Care Provider [phone] Encounters Date Type Department Care Team Description 01/17/2025 6:08 PM EDT - 01/17/2025 11:59 PM EDT Hospital Encounter [facility] MRI [address] [place] [id number] Seizure disorder ([facility] V24, [facility] V28) Discharge Disposition: Home or Self Care from Last 3 Months Surgical History Surgery Date Site/Laterality Comments CYST REMOVAL PROCEDURE: VA EXCISION PILONIDAL CYST/SINUS SIMPLE Medical History Medical History Date Comments MELECIO (obstructive sleep apnea) 01/18/2020 DX :MELECIO (obstructive sleep apnea) COPD (chronic obstructive pu lmonary disease) ([facility] V24, [facility] V28) 01/18/2020 DX:COPD (chronic o bstructive pulmonary disease) ([facility]) Hypertension 01/18/2020 DX:Hypertension Hypothyroidism 01/18/2020 [...] 02/11/2024 8:50 AM EDT Plan of Treatment Upcoming Encounters Date Type Department Care Team (Late st Contact Info) Description 04/11/2025 3:00 PM EDT Consult Orthopedic Surgery [facility] [address] [facility] [address] [place] [address] Karlie Rhodes MD [address] [facility] [address] [place] [id number] 04/25/2025 10:15 AM EDT Office Visit General Surgery [facility] [address] [facility] [address] [place] [address] Elder Woods MD [address] [place] [phone] Health Maintenance Due Date Last Done Comments Zoster Vaccines (1 of 2) 2010 RSV Immunization Adult Patients (1 - Risk 60-74 years 1-dose series) 2020 Cholesterol Screening (Lipid Panel) 06/17/2022 Colorectal Cancer Screening: Colonoscopy 06/17/2022 HIV Screening 06/17/2022 Hepatitis C Screening 06/17/2022 Social Influencers of Health Screening 06/17/2022 Hypertension/CHF/CAD Annual BMP Blood Test 07/05/2022 Depression Screening 07/20/2024 COVID-19 Vaccine (1 - 2023-2 5 season) 2025 Influenza Vaccine (#1) 2025 , 06/22/2019, 05/06/2018 DTaP,Tdap,and Td Vaccines (2 - Td or Tdap) 11/11/2034 11/11/2024 Pneumococcal Vaccine: 50+ Years Completed 10/22/2022 HIB Vaccines Aged Out No longer eligi [...] Procedure Name Priority Date/Time Associated Diagnosis Comments MR BRAIN WO CONTRAST Routine 01/17/2025 7:17 PM EDT Seizure disorder ([facility] V24, [facility] V28) from Last 3 Months Results * MR Brain wo Contrast (01/17/2025 7:17 PM EDT) Anatomical Region Laterality Modality Head and Neck Magnetic Resonan ce 01/17/2025 9:43 PM EDT Impressions 01/18/2025 9:08 AM EDT 1. Findings suggestive of mild chronic microvascular ischemic disease, with a small linear focus of post infarct encephalomalacia in the left cerebellar hemisphere. 2. Normal noncontrast MRI appearance of the IACs. -------- FINAL REPORT -------- Dictated By: Ethan Rouse Dictated Date: 01/17/2025 21:43 ET Assigned Physician: Ethan Rouse Reviewed and Electronically Signed By: Ethan Rouse Signed Date: 01/18/2025 09:08 ET Workstation ID: [id number] Transcribed By: Self Edit Transcribed Date: 01/17/2025 21:43 ET Narrative 01/18/2025 9:08 AM EDT PROCEDURE: Noncontrast MRI of the brain. HISTORY: Partial seizure disorder. Tinnitus. COMPARISON: 06/13/2019. TECHNIQUE: Multiplanar multisequence MRI of the brain without intravenous contrast administration. Dedicated thin section T2-weighted images of the IACs were also obtained. FINDINGS: BRAIN: No diffusion abnormality. No mass or extra-axial fluid collection. No hydrocephalus. The major intracranial flow voids are preserved. Age commensurate ventricles and sulci. Small linear focus of encephalomalacia in the left cerebellar hemisphere (series 5, image 21) consistent with a remote small vessel infarct. There are a few scattered foci of T2 prolongation in the supratentorial white matter and patchy T2 signal in the central jenelle, suggestive of mild chronic microvascular ischemic disease. Coronal imaging through the hippocampi demonstrates no findings to suggest mesial temporal sclerosis. Thin section T2-weighted images through the internal auditory canals are unremarkable. ORBITS: Normal. SINUSES/MASTOIDS: Minimal mucosal thickening in the frontal sinuses and maxillary antra with a small mucous retention cyst in the inferior left maxillary antra. Mild mucosal thickening in the ethmoid air cells, more prominent posteriorly, and mild mucosal thickening in the sphenoid sinuses. CALVARIUM: Normal. OTHER: The visualized skull base soft tissues are normal. Procedure Note Ehtan Rouse MD - 01/18/2025 PROCEDURE: Noncontrast MRI of the brain. HISTORY: Partial seizure disorder. Tinnitus. COMPARISON: 06/13/2019. TECHNIQUE: Multiplanar multisequence MRI of the brain without intravenouscontrast administration. Dedicated thin section T2-weighted images of theIACs were also obtained. FINDINGS: BRAIN: No diffusion abnormality. No mass or extra-axial fluid collection.No hydrocephalus. The major intracranial flow voids are preserved. Agecommensurate ventricles and sulci. Small linear focus of encephalomalaciain the left cerebellar hemisphere (series 5, image 21) consistent with aremote small vessel infarct. There are a few scattered foci of [id number] in the supratentorial white matter and patchy T2 signal inthe central jenelle, suggestive of mild chronic microvascular ischemicdisease. Coronal imaging through the hippocampi demonstrates no findingsto suggest mesial temporal sclerosis. Thin section T2-weighted imagesthrough the internal auditory canals are unremarkable. ORBITS: Normal. SINUSES/MASTOIDS: Minimal mucosal thickening in the frontal sinuses andmaxillary antra with a small mucous retention cyst in the inferior leftmaxillary antra. Mild mucosal thickening in the ethmoid air cells, moreprominent posteriorly, and mild mucosal thickening in the sphenoidsinuses. CALVARIUM: Normal. OTHER: The visualized skull base soft tissues are normal. IMPRESSION: 1. Findings suggestive of mild chronic microvascular ischemic disease,with a small linear focus of post infarct encephalomalacia in the leftcerebellar hemisphere. 2. Normal noncontrast MRI appearance of the IACs. -------- FINAL REPORT -------- Dictated By: Ethan Rouse Dictated Date: 01/17/2025 21:43 ET Assigned Physician: Ethan Rouse Reviewed and Electronically Signed By: Ethan Rouse Signed Date: 01/18/2025 09:08 ET Workstation ID: [id number] Transcribed By: Self Edit Transcribed Date: 01/17/2025 21:43 ET Belinda Nelson NP IMG MRI PROCEDURES Final Result from Last 3 Months Insurance [facility] [employer] Care Teams Agent Telegrapher Relationship Specialty Start Date End Date Maurisio Hayes MD [address] [place] [address] PCP - General Internal Medicine 10/19/24
--- OUTSIDE RECORDS SUMMARY | 2025-03-28 10:03 | XMS_ITS | Patient Health Record ---
Author Organization [facility] Address [address] [facility] [address] [place] [address] Care Team Providers Care Travel Physical Therapist Name Role Phone Maurisio Hayes Primary Care [...] Problem Status W/U Status Risk Notes Problem Acquired hallux valgus ([id number]) Hallux valgus (acquired), right foot (M20.11) Active confirmed Plan Of Treatment No Information Medical (General) History Medical History History ICD Code Cardiovascular Disease Hypertension Diabetes Head Trauma/Concussion COPD Emphysema Severe Asthma Surgical History Surgery Date(Month/Year) Back Lesions Removed
== END 2025-03-28 09:24 | disposition home or self-care (01) ==
LOC: HO.HSM 08:52
PROVIDERS: PCP Internal Medicine; Referring Provider Internal Medicine; Visit Provider Registered Nurse
DX: G40.109 Localization-related (focal) (partial) symptomatic epilepsy and epileptic syndromes with simple partial seizures, not intractable, without status epilepticus (principal); H93.12 Tinnitus, left ear; I67.89 Other cerebrovascular disease; R25.1 Tremor, unspecified
CPT/HCPCS: 99214

== ENCOUNTER → 2025-03-28 08:51 | Outpatient (BNVA) | payer OTHER, SELFPAY | PROVIDERS: PCP Internal Medicine; Referring Provider Internal Medicine; Visit Provider Registered Nurse | DX: H93.12 Tinnitus, left ear (principal); I67.89 Other cerebrovascular disease; G40.109 Localization-related (focal) (partial) symptomatic epilepsy and epileptic syndromes with simple partial seizures, not intractable, without status epilepticus; R25.1 Tremor, unspecified; F17.210 Nicotine dependence, cigarettes, uncomplicated | CPT/HCPCS: 99212 ==

== ENCOUNTER 2025-06-20 12:28 | Outpatient (AMB) | payer MEDICARE, MEDICAID, SELFPAY ==
--- NOTE | 2025-06-20 12:49 | A.OFFVIS_ITS ---
Vital Signs 3 06/20/25 12:50 Height 6 ft 1 in Weight 239 lb BMI 31.5 BP 148/70 H Blood Pressure Location Rt radial Position Sitting Pulse 81 Intake Visit Reasons: Skin growth rt side back, 2 skin growth nose Intake Note: Patient referred by PCP Dr. Hayes for assessment of skin growths on Rt back and 2 lesions on nose. Patient c/o: growth on RT back enlarging. Present for 8m. Lesions on nose present for a few months. All lesions previously treated by Dr. Valladares (derm) w/LN2. Lesions on nose get irritated, bleeding. Reports hx of precancerous lesions on dorsal hands. No hx skin CA. Retail Event Coordinator Required: No Accompanied by: Self / Same As Patient Allergies aspirin Allergy (Intermediate, Verified 06/20/25 12:57) Rash levofloxacin Adverse Reaction (Severe, Verified 06/20/25 12:57) Rash bupropion (From Wellbutrin) Adverse Reaction (Intermediate, Verified 06/20/25 12:57) Hallucinations hydrochlorothiazide Adverse Reaction (Intermediate, Verified 06/20/25 12:57) Diarrhea trazodone Adverse Reaction (Intermediate, Verified 06/20/25 12:57) Hallucinations Medication List - Last Reconciled 06/20/25 by Jose L Bundy MD albuterol sulfate 0.63 mg inhalation Q4-6H PRN albuterol sulfate 90 mcg/actuation (Ventolin HFA) 2 puffs inhalation Q6H PRN 30 days Anoro Ellipta 62.5-25 mcg/actuation (umeclidinium-vilanterol) 1 ea PO DAILY NS azithromycin 250 mg PO 3XW budesonide 32 mcg/actuation intranasal clotrimazole 10 mg PO epinephrine 0.125 mg/actuation (Primatene Mist) 1 puff inhalation Q6H PRN fluticasone furoate 100 mcg/actuation (Arnuity Ellipta) 1 inh inhalation DAILY 30 days jesrviepkmo-eptpihazo-fynxpiod 200-62.5-25 mcg (Trelegy Ellipta) 1 inh inhalation DAILY 30 days levothyroxine 100 mcg PO DAILY lisinopril 20 mg PO DAILY nebulizers As directed roflumilast 500 mcg PO DAILY triamcinolone acetonide 0.1% 1 appl topical DAILY HPI Comments Details: Patient reports a several month history of multiple lesions on his nose and his right upper back. ?My DrTalia Froze them with nitrogen but did not quite get them all. ? He reports the lesions soon grew back. 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 [facility] Medical History Tinnitus Partial seizure disorder Hypertension Migraine Vertebro-basilar artery syndrome Tobacco dependence Pneumonia Pneumonia Pulmonary nodules COPD (chronic obstructive pulmonary disease) Family History (Updated 06/20/25 @ 13:01 by MARLON Serrano) Father Parkinsons disease Mother Breast CA Social History Patient Tobacco Use Status: Current everyday Tobacco user Tobacco use type: Cigarette Cigarette Packs Per Day: 0.75 Cigarettes Per Day: 15 Years Smoked: 50+ Years Review of Systems Const All systems reviewed & are unremarkable except as noted in HPI and below Physical Exam Vital Signs: Last Vital Signs Pulse 81 06/20/25 12:50 BP 148/70 H 06/20/25 12:50 BMI result Body Mass Index 31.5 Const Orientation/consciousness: oriented to person, oriented to place and oriented to time HEENT Head: Yes normal to inspection, Yes No palpable skull fracture present and Yes normocephalic Nose image: 2 1. Multiple cutaneous lesions consistent with actinic keratoses Eyes Pupils: Equal, round and reactive pupils present EOM: EOMs intact bilaterally Neck Neck: Yes normal visual inspection Chest Chest palpation & inspection: normal inspection of the chest Resp Effort & Inspection: normal respiratory effort and able to speak in complete sentences Cardio Rate: regular rate Rhythm: regular rhythm GI Inspection: Yes normal to inspection Back/Spine/Pelvis Back/spine/pelvis image: 2 1. 1-2cm cutaneous lesion consistent with actinic keratosis Neuro General: oriented to person, oriented to place and oriented to time Cranial nerves: Yes Equal, round and reactive pupils present Extrem General: Yes normal to inspection Assessment & Plan Assessment & Plan (1) Actinic keratosis: Code(s): L57.0 - Actinic keratosis Category: Medical Plan: I told the patient that I felt excision of his back lesion was appropriate. I reviewed with them the nature of excisional biopsy and also reviewed with them the risks that are involved. These include but are not limited to the risk of bleeding risks infection the risk of recurrence the risk of chronic pain and the risk of unsightly scarring. He indicated that he understood. He told me that he understood and accepted the risks and still wished to proceed with excisional biopsy. Coding Level of Care Code New Pt Level 3 (95394) Diagnoses Actinic keratosis L57.0 Time Spent (min) 30 Comment Patient visit, record review and coordination of care time
[2025-06-20 12:50] VITALS: BP 148/70; PULSE 81; BMI 31.5
== END 2025-06-20 13:09 | disposition home or self-care (01) ==
LOC: HO.HGS 12:29
PROVIDERS: PCP Internal Medicine; Referring Provider Internal Medicine; Visit Provider Surgery
DX: L57.0 Actinic keratosis (principal)
CPT/HCPCS: 99203

== ENCOUNTER → 2025-06-20 12:28 | Outpatient (BNVA) | payer MEDICARE, MEDICAID, SELFPAY | PROVIDERS: PCP Internal Medicine; Referring Provider Internal Medicine; Visit Provider Surgery | DX: L57.0 Actinic keratosis (principal) | CPT/HCPCS: 99202 ==